=== PATIENT | female | born 1975 | race Two or more races ===

== ENCOUNTER 2021-11-17 18:19 | Inpatient (IN) | payer MEDICARE, MEDICAID ==
[~2021-11-17] VITALS: Ht 154.9 cm; Wt 56.1 kg
[2021-11-17] MEDS ORDERED: LURA40TA2 PO (19:22)
[2021-11-17] MEDS ORDERED: ESCI-8 PO (19:22)
[2021-11-17] MEDS ORDERED: OMEP40CA21 PO (19:27)
[2021-11-17] MEDS ORDERED: PANT40TA54 PO (19:51)
[2021-11-17] MEDS ORDERED: SPIR50TA27 PO (19:51)
[2021-11-17] MEDS ORDERED: CYCL10TA16 PO (19:51)
[2021-11-17] MEDS ORDERED: MORP30TA71 PO (19:51)
[2021-11-17] MEDS ORDERED: CITA-144 PO (19:51)
[2021-11-17] MEDS ORDERED: ETAN50PE2 SQ (19:51)
[2021-11-17] MEDS ORDERED: VARE1TAB28 PO (19:51)
[2021-11-17] MEDS ORDERED: LEVO5TAB13 PO (19:51)
[2021-11-17] MEDS ORDERED: BUSP10TA23 PO (19:51)
[2021-11-17] MEDS ORDERED: ZOLP10TA8 PO (19:51)
[2021-11-17] MEDS ORDERED: LEVO112T7 PO (19:51)
[2021-11-17] MEDS ORDERED: TRAZ-257 PO (19:51)
[2021-11-17 20:31] LABS: BASOPHILS % (AUTO) 0.5 % (0.0-2.0); EOSINOPHILS % (AUTO) 0.3 % (1.0-6.0); HEMATOCRIT 38.1 % (36-46); HEMOGLOBIN 13.1 g/dL (12.0-16.0); LYMPHOCYTES # (AUTO) 1.8 K/uL (1.0-4.8); LYMPHOCYTES % (AUTO) 20.1 % (22.0-44.0); MEAN CORPUSCULAR HEMOGLOBIN 28.6 pg (26.0-34.0); MEAN CORPUSCULAR HGB CONC 34.4 G/dL (31.0-37.0); MEAN CORPUSCULAR VOLUME 83 fL (80-100); MONOCYTES # (AUTO) 0.5 K/uL (0.1-1.0); NEUTROPHILS # (AUTO) 6.6 K/uL (1.8-7.7); NEUTROPHILS % (AUTO) 73.1 % (40.0-70.0); PLATELET COUNT (AUTO) 417 K/uL (150-450); RED BLOOD CELL COUNT(AUTO) 4.58 MIL/uL (4.00-5.20); RED CELL DISTRIBUTION WIDTH 15.3 % (11.5-14.5)
[2021-11-17 20:43] LABS: ANION GAP 11 mmol/L (8-16); CALCIUM, TOTAL 9.8 mg/dL (8.8-10.5); CARBON DIOXIDE 23 mmol/L (22-29); CHLORIDE 104 mmol/L (98-107); CREATININE 0.79 mg/dL (0.60-1.30); GLUCOSE,RANDOM 92 mg/dL (70-110); POTASSIUM 3.5 mmol/L (3.5-5.1); SODIUM SERUM 138 mmol/L (136-145); UREA NITROGEN, BLOOD 8 mg/dL (7-18)
[2021-11-17 20:44] LABS: GLOMERULAR FILTR. RATE CALC > 60 mL/min (>60)
[2021-11-17 20:48] LABS: ALANINE AMINOTRANSFERASE 25 U/L (12-78); ALBUMIN 4.8 g/dL (3.4-5.0); ALKALINE PHOSPHATASE 92 U/L (46-116); ASPARTATE AMINOTRANSFERASE 17 U/L (15-37); BILIRUBIN,TOTAL 0.6 mg/dL (0.1-1.0)
[2021-11-17 22:01] LABS: HCG,QUANTITATIVE < 1 mIU/mL (0-6)
[2021-11-18] MEDS ORDERED: HYDROCODONE/ACETAMINOPHEN 5-325 MG TABLET PO ONE (00:15)
[2021-11-18 01:37] LABS: AMPHET/METH SCREEN,URINE NEGATIVE (NEGATIVE); BARBITURATE SCREEN, URINE NEGATIVE (NEGATIVE); BENZODIAZEPINES SCREEN,URINE NEGATIVE (NEGATIVE); CANNABINOID SCREEN,URINE POSITIVE (NEGATIVE); COCAINE SCREEN,URINE NEGATIVE (NEGATIVE); METHADONE SCREEN, URINE NEGATIVE (NEGATIVE); OPIATE SCREEN,URINE NEGATIVE (NEGATIVE)
[2021-11-18 01:40] LABS: PHENCYCLIDINE SCREEN,URINE NEGATIVE (NEGATIVE)
[2021-11-18] MEDS ORDERED: OLANZapine 5 MG RAPDIS TABLET PO PRN (02:00)
[2021-11-18] MEDS ORDERED: ZOLPIDEM TARTRATE 10 MG TABLET PO PRN (02:00)
[2021-11-18 02:43] LABS: APPEARANCE,URINE CLEAR (CLEAR); BILIRUBIN,URINE NEGATIVE (NEGATIVE); GLUCOSE, URINE (UA) NEGATIVE (NEGATIVE); KETONES,URINE 80-100 mg/dL (NEGATIVE); LEUKOCYTE ESTERASE ,URINE NEGATIVE (NEGATIVE); NITRATE,URINE NEGATIVE (NEGATIVE); OCCULT BLOOD,URINE NEGATIVE (NEGATIVE); PH,URINE 6.5 (5.0-8.0); PROTEIN,URINE 30-70 mg/dL (NEGATIVE); SPECIFIC GRAVITIY, URINE 1.025 (1.003-1.030)
[2021-11-18 06:14] LABS: COVID AG,FIA SOURCE NASAL SWAB
[2021-11-18] MEDS ORDERED: ACETAMINOPHEN 325 MG TABLET PO PRN (10:30)
[2021-11-18] MEDS ORDERED: LOPERAMIDE HCL 2 MG CAPSULE PO PRN (10:30)
[2021-11-18] MEDS ORDERED: PROMETHAZINE HCL 25 MG TABLET PO PRN (10:30)
[2021-11-18] MEDS ORDERED: HydrOXYzine PAMOATE 50 MG CAPSULE PO PRN (10:30)
[2021-11-18] MEDS ORDERED: LURASIDONE HCL 20 MG TABLET PO PRN (10:30)
[2021-11-18] MEDS ORDERED: MAG HYDROX/AL HYDROX/SIMETH ES 30 ML SUSPENSION UDCUP PO PRN (10:30)
[2021-11-18] MEDS ORDERED: MAGNESIUM HYDROXIDE SUSPENSION 30 ML UDCUP PO PRN (10:30)
[2021-11-18] MEDS ORDERED: GuaiFENesin/D-METHORPHAN [SUGAR-FREE] 200-20MG/10 ML SYRUP UDCUP PO PRN (10:30)
[2021-11-18] MEDS ORDERED: TUBERCULIN, PURIFIED PROTEIN DERIVATIVE 5 TU/0.1 ML SYRINGE ID ONE (10:30)
[2021-11-18 10:46] VITALS: BP 131/82
[2021-11-18] MEDS: GABAPENTIN 300 MG CAPSULE PO SCH ×2 (12:30→16:20)
[2021-11-18] MEDS: SPIRONOLACTONE 50 MG TABLET PO SCH (12:30)
[2021-11-18] MEDS: OMEPRAZOLE 20 MG CAPSULE PO SCH (12:31)
[2021-11-18] MEDS: LORazepam 2 MG TABLET PO PRN (14:00)
[2021-11-18] MEDS: THIAMINE 100 MG TABLET PO SCH (16:20)
[2021-11-18 16:30] VITALS: BP 155/80
[2021-11-18] MEDS: LURASIDONE HCL 40 MG TABLET PO SCH (17:37)
[2021-11-18] MEDS: MELATONIN 5 MG TABLET PO SCH (21:00)
[2021-11-18] MEDS: TraZODone HCL 100 MG TABLET PO SCH (21:00)
[2021-11-19] MEDS: LORazepam 2 MG TABLET PO PRN ×3 (03:40→16:30)
[2021-11-19] MEDS: LEVOTHYROXINE SODIUM 112 MCG TABLET PO SCH (06:12)
[2021-11-19 07:43] LABS: HEMOGLOBIN A1C 4.9 % (3.8-5.6)
[2021-11-19 07:50] LABS: CHOL/HDL RATIO 1.8 (3.9-5.7); FREE T4 (FREE THYROXINE) 1.28 ng/dL (0.76-1.46); THYROID STIMULATING HORMONE 0.1 uIU/mL (0.36-3.74)
[2021-11-19 08:00] VITALS: BP 120/76
[2021-11-19] MEDS: OMEPRAZOLE 20 MG CAPSULE PO SCH (08:39)
[2021-11-19] MEDS: MULTIVITAMINS WITH MINERALS, THERAPEUTIC TABLET PO SCH (08:39)
[2021-11-19] MEDS: FOLIC ACID 1 MG TABLET PO SCH (08:39)
[2021-11-19] MEDS: GABAPENTIN 300 MG CAPSULE PO SCH ×2 (08:39→14:11)
[2021-11-19] MEDS: THIAMINE 100 MG TABLET PO SCH ×2 (08:39→17:04)
[2021-11-19] MEDS: NALTREXONE HCL 50 MG TABLET PO SCH (08:40)
[2021-11-19] MEDS: SPIRONOLACTONE 50 MG TABLET PO SCH (08:40)
[2021-11-19] MEDS: OMEGA-3/DHA/EPA/FISH OIL 1,000 MG CAPSULE PO SCH (08:40)
[2021-11-19] MEDS ORDERED: DULoxetine HCL 20 MG CAPSULE PO SCH (09:00)
[2021-11-19 16:38] VITALS: BP 130/82
[2021-11-19] MEDS: LURASIDONE HCL 40 MG TABLET PO SCH (17:04)
[2021-11-19] MEDS: GABAPENTIN 400 MG CAPSULE PO SCH (17:04)
[2021-11-19] MEDS: MELATONIN 5 MG TABLET PO SCH (20:33)
[2021-11-19] MEDS: TraZODone HCL 100 MG TABLET PO SCH (20:33)
[2021-11-20] MEDS: LORazepam 2 MG TABLET PO PRN ×2 (03:52→12:19)
[2021-11-20 03:53] VITALS: BP 110/74
[2021-11-20] MEDS: LEVOTHYROXINE SODIUM 112 MCG TABLET PO SCH (06:59)
[2021-11-20 08:00] VITALS: BP 112/76
[2021-11-20] MEDS ORDERED: DULoxetine HCL 30 MG CAPSULE PO SCH (09:00)
[2021-11-20] MEDS: GABAPENTIN 400 MG CAPSULE PO SCH ×2 (09:11→12:17)
[2021-11-20] MEDS: OMEPRAZOLE 20 MG CAPSULE PO SCH (09:12)
[2021-11-20] MEDS: MULTIVITAMINS WITH MINERALS, THERAPEUTIC TABLET PO SCH (09:12)
[2021-11-20] MEDS: OMEGA-3/DHA/EPA/FISH OIL 1,000 MG CAPSULE PO SCH (09:13)
[2021-11-20] MEDS: NALTREXONE HCL 50 MG TABLET PO SCH (09:13)
[2021-11-20] MEDS: THIAMINE 100 MG TABLET PO SCH ×2 (09:13→16:32)
[2021-11-20] MEDS: SPIRONOLACTONE 50 MG TABLET PO SCH (09:13)
[2021-11-20] MEDS: FOLIC ACID 1 MG TABLET PO SCH (09:14)
[2021-11-20] MEDS ORDERED: GABA-1201 PO (15:45)
[2021-11-20] MEDS ORDERED: LURA40TA2 PO (15:45)
[2021-11-20] MEDS ORDERED: NALT50TA PO (15:45)
[2021-11-20] MEDS ORDERED: DULO-114 PO (15:45)
[2021-11-20] MEDS ORDERED: MELA5TAB40 PO (15:45)
[2021-11-20] MEDS ORDERED: OMEG-108 PO (15:45)
[2021-11-20] MEDS ORDERED: TRAZ-257 PO (15:45)
[2021-11-20] MEDS: GABAPENTIN 300 MG CAPSULE PO SCH (16:32)
[2021-11-20 17:05] VITALS: BP 109/71
[2021-11-20] MEDS: LURASIDONE HCL 40 MG TABLET PO SCH (17:49)
[2021-11-20] MEDS: TraZODone HCL 100 MG TABLET PO SCH (20:22)
[2021-11-20] MEDS: MELATONIN 5 MG TABLET PO SCH (20:22)
[2021-11-21 02:35] VITALS: BP 139/73
[2021-11-21] MEDS: LORazepam 2 MG TABLET PO PRN ×2 (02:39→11:42)
[2021-11-21] MEDS ORDERED: OMEG-108 PO (04:49)
[2021-11-21] MEDS ORDERED: LEVOTHYROXINE SODIUM 100 MCG TABLET PO SCH (07:00)
[2021-11-21] MEDS: GABAPENTIN 300 MG CAPSULE PO SCH ×2 (08:36→13:11)
[2021-11-21] MEDS: OMEPRAZOLE 20 MG CAPSULE PO SCH (08:36)
[2021-11-21] MEDS: OMEGA-3/DHA/EPA/FISH OIL 1,000 MG CAPSULE PO SCH (08:36)
[2021-11-21] MEDS: NALTREXONE HCL 50 MG TABLET PO SCH (08:36)
[2021-11-21] MEDS: MULTIVITAMINS WITH MINERALS, THERAPEUTIC TABLET PO SCH (08:36)
[2021-11-21] MEDS: FOLIC ACID 1 MG TABLET PO SCH (08:36)
[2021-11-21] MEDS: THIAMINE 100 MG TABLET PO SCH (08:37)
[2021-11-21] MEDS: SPIRONOLACTONE 50 MG TABLET PO SCH (08:37)
[2021-11-21] MEDS ORDERED: DULoxetine HCL 20 MG CAPSULE PO SCH (09:00)
[2021-11-21] MEDS ORDERED: LEVO125T95 PO (10:10)
[2021-11-21 10:11] VITALS: BP 114/75
[2021-11-21 10:23] VITALS: BP 114/75
[2021-11-21] MEDS ORDERED: LEVO100 PO (12:01)
[2021-11-21] MEDS ORDERED: OMEP20 PO (12:01)
[2021-11-21] MEDS ORDERED: SPIR50TA5 PO (12:01)
== END 2021-11-21 15:05 | disposition home or self-care (01) | DRG 885 ==
LOC: EMS 19:06 → UNDOADMIN 11-18 06:26 → B2X 11-18 06:26 → 3EX 11-18 10:00
PROVIDERS: ADMIT Psychiatry & Neurology Psychiatry; ATTEND Psychiatry & Neurology Psychiatry
DX: F31.30 Bipolar disorder, current episode depressed, mild or moderate severity, unspecified (principal); R45.851 Suicidal ideations; F25.9 Schizoaffective disorder, unspecified; E03.9 Hypothyroidism, unspecified; F17.210 Nicotine dependence, cigarettes, uncomplicated; F41.9 Anxiety disorder, unspecified; K21.9 Gastro-esophageal reflux disease without esophagitis; M06.9 Rheumatoid arthritis, unspecified; Z20.822 Contact with and (suspected) exposure to COVID-19; M79.7 Fibromyalgia; Z91.19 Patient's noncompliance with other medical treatment and regimen
CPT/HCPCS: 80053; 80061; 81003; 83036; 84439; 84443; 84702; 85025; 86592; 99285; G0378; G0480; Q9967

== ENCOUNTER 2022-02-13 13:57 | Inpatient (IN) | payer MEDICARE, MEDICAID ==
[~2022-02-13] VITALS: Ht 154.9 cm; Wt 60.5 kg
[~2022-02-13 13:57] MED LIST: DULO-114 PO; GABA-1201 PO; LEVO100 PO; LEVO125T95 PO; LURA40TA2 PO; MELA5TAB40 PO; NALT50TA PO; OMEG-135 PO; OMEP20 PO; OMEP40CA21 PO; SPIR50TA27 PO; SPIR50TA5 PO; TRAZ-257 PO
[2022-02-13 14:57] LABS: BASOPHILS % (AUTO) 1.1 % (0.0-2.0); EOSINOPHILS % (AUTO) 0.6 % (1.0-6.0); HEMATOCRIT 38.5 % (36-46); HEMOGLOBIN 12.7 g/dL (12.0-16.0); LYMPHOCYTES # (AUTO) 1.8 K/uL (1.0-4.8); LYMPHOCYTES % (AUTO) 20.4 % (22.0-44.0); MEAN CORPUSCULAR HEMOGLOBIN 28.6 pg (26.0-34.0); MEAN CORPUSCULAR VOLUME 87 fL (80-100); MONOCYTES # (AUTO) 0.6 K/uL (0.1-1.0); MONOCYTES % (AUTO) 7.1 % (2.0-9.0); NEUTROPHILS # (AUTO) 6.2 K/uL (1.8-7.7); NEUTROPHILS % (AUTO) 70.8 % (40.0-70.0); PLATELET COUNT (AUTO) 306 K/uL (150-450); RED BLOOD CELL COUNT(AUTO) 4.45 MIL/uL (4.00-5.20); RED CELL DISTRIBUTION WIDTH 15.3 % (11.5-14.5)
[2022-02-13 15:14] LABS: ANION GAP 7 mmol/L (8-16); CALCIUM, TOTAL 9.4 mg/dL (8.8-10.5); CARBON DIOXIDE 30 mmol/L (22-29); CHLORIDE 99 mmol/L (98-107); CREATININE 0.95 mg/dL (0.60-1.30); GLOMERULAR FILTR. RATE CALC > 60 mL/min (>60); GLUCOSE,RANDOM 97 mg/dL (70-110); SODIUM SERUM 136 mmol/L (136-145); UREA NITROGEN, BLOOD 8 mg/dL (7-18)
[2022-02-13 15:20] LABS: ALANINE AMINOTRANSFERASE 30 U/L (12-78); ALKALINE PHOSPHATASE 68 U/L (46-116); ASPARTATE AMINOTRANSFERASE 27 U/L (15-37); BILIRUBIN,TOTAL 0.3 mg/dL (0.1-1.0); TOTAL PROTEIN, SERUM 7.6 g/dL (6.4-8.2)
[2022-02-13] MEDS ORDERED: MAGNESIUM HYDROXIDE SUSPENSION 30 ML UDCUP PO PRN (16:00)
[2022-02-13] MEDS ORDERED: HydrOXYzine PAMOATE 50 MG CAPSULE PO PRN (16:00)
[2022-02-13] MEDS ORDERED: ZOLPIDEM TARTRATE 10 MG TABLET PO PRN (16:00)
[2022-02-13] MEDS ORDERED: MAG HYDROX/AL HYDROX/SIMETH ES 30 ML SUSPENSION UDCUP PO PRN (16:00)
[2022-02-13] MEDS ORDERED: LOPERAMIDE HCL 2 MG CAPSULE PO PRN (16:00)
[2022-02-13] MEDS ORDERED: PROMETHAZINE HCL 25 MG TABLET PO PRN (16:00)
[2022-02-13] MEDS ORDERED: GuaiFENesin/D-METHORPHAN [SUGAR-FREE] 200-20MG/10 ML SYRUP UDCUP PO PRN (16:00)
[2022-02-13] MEDS ORDERED: LURASIDONE HCL 20 MG TABLET PO PRN (16:00)
[2022-02-13] MEDS ORDERED: ACETAMINOPHEN 325 MG TABLET PO PRN (16:00)
[2022-02-13] MEDS ORDERED: BUSP10TA23 PO (16:09)
[2022-02-13] MEDS ORDERED: CYCL10TA16 PO (16:09)
[2022-02-13] MEDS ORDERED: MORP30TA71 PO (16:09)
[2022-02-13] MEDS ORDERED: LEVO112T4 PO (16:09)
[2022-02-13] MEDS ORDERED: DULO20CA71 PO (16:09)
[2022-02-13] MEDS ORDERED: GABA-1181 PO (16:09)
[2022-02-13] MEDS ORDERED: LEVO5TAB13 PO (16:09)
[2022-02-13] MEDS ORDERED: ZOLP10TA8 PO (16:09)
[2022-02-13] MEDS ORDERED: CITA-144 PO (16:09)
[2022-02-13] MEDS ORDERED: ETAN50PE2 SQ (16:09)
[2022-02-13] MEDS ORDERED: DiphenhydrAMINE HCL 25 MG CAPSULE PO ONE (17:15)
[2022-02-13] MEDS ORDERED: LORazepam 2 MG TABLET PO ONE (17:15)
[2022-02-13] MEDS ORDERED: HALOPERIDOL 5 MG TABLET PO ONE (17:15)
[2022-02-13] MEDS ORDERED: CloNIDine HCL 0.1 MG TABLET PO PRN (18:00)
[2022-02-13] MEDS: BusPIRone HCL 10 MG TABLET PO SCH (18:09)
[2022-02-13] MEDS: LURASIDONE HCL 60 MG TABLET PO SCH (18:15)
[2022-02-13 20:44] LABS: COVID AG,FIA SOURCE NASAL SWAB
[2022-02-13] MEDS: MELATONIN 5 MG TABLET PO SCH (21:00)
[2022-02-13] MEDS ORDERED: GABAPENTIN 300 MG CAPSULE PO SCH (21:00)
[2022-02-13] MEDS: THIAMINE 100 MG TABLET PO SCH (21:16)
[2022-02-13] MEDS: GABAPENTIN 300 MG CAPSULE PO SCH (21:16)
[2022-02-13] MEDS ORDERED: INFLUENZA VIRUS VACCINE QVS 2022-23 (6MO+)/PF 60 MCG/0.5 ML SYRINGE IM. ONE (23:00)
[2022-02-13 23:07] VITALS: BP 150/72
[2022-02-14] MEDS ORDERED: NICOTINE 14 MG/24 HOUR PATCH TD PRN (03:30)
[2022-02-14] MEDS: LEVOTHYROXINE SODIUM 88 MCG TABLET PO SCH (06:11)
[2022-02-14] MEDS: OMEGA-3/DHA/EPA/FISH OIL 1,000 MG CAPSULE PO SCH (08:41)
[2022-02-14] MEDS: MULTIVITAMINS WITH MINERALS, THERAPEUTIC TABLET PO SCH (08:41)
[2022-02-14] MEDS: SPIRONOLACTONE 50 MG TABLET PO SCH (08:41)
[2022-02-14] MEDS: OMEPRAZOLE 20 MG CAPSULE PO SCH (08:41)
[2022-02-14] MEDS: DULoxetine HCL 60 MG CAPSULE PO SCH (08:41)
[2022-02-14] MEDS: GABAPENTIN 300 MG CAPSULE PO SCH ×3 (08:41→16:12)
[2022-02-14] MEDS: FOLIC ACID 1 MG TABLET PO SCH (08:42)
[2022-02-14] MEDS: THIAMINE 100 MG TABLET PO SCH ×2 (08:42→16:13)
[2022-02-14 08:58] VITALS: BP 153/90
[2022-02-14] MEDS ORDERED: [UNRECOGNIZED DRUG - OTHER] PO SCH (09:00)
[2022-02-14] MEDS: BusPIRone HCL 10 MG TABLET PO SCH ×2 (11:02→16:13)
[2022-02-14 16:02] VITALS: BP 137/85
[2022-02-14] MEDS: LURASIDONE HCL 60 MG TABLET PO SCH (16:34)
[2022-02-14] MEDS: MELATONIN 5 MG TABLET PO SCH (20:26)
[2022-02-15] MEDS: LEVOTHYROXINE SODIUM 88 MCG TABLET PO SCH (06:53)
[2022-02-15] MEDS: SPIRONOLACTONE 50 MG TABLET PO SCH (08:25)
[2022-02-15] MEDS: OMEGA-3/DHA/EPA/FISH OIL 1,000 MG CAPSULE PO SCH (08:25)
[2022-02-15] MEDS: FOLIC ACID 1 MG TABLET PO SCH (08:25)
[2022-02-15] MEDS: OMEPRAZOLE 20 MG CAPSULE PO SCH (08:25)
[2022-02-15] MEDS: THIAMINE 100 MG TABLET PO SCH ×2 (08:25→16:56)
[2022-02-15] MEDS: BusPIRone HCL 10 MG TABLET PO SCH ×2 (08:25→16:56)
[2022-02-15] MEDS: DULoxetine HCL 60 MG CAPSULE PO SCH (08:25)
[2022-02-15] MEDS: GABAPENTIN 300 MG CAPSULE PO SCH ×3 (08:25→16:56)
[2022-02-15] MEDS: MULTIVITAMINS WITH MINERALS, THERAPEUTIC TABLET PO SCH (08:55)
[2022-02-15 09:15] VITALS: BP 140/84
[2022-02-15] MEDS: LORazepam 2 MG TABLET PO PRN ×2 (10:12→19:42)
[2022-02-15 16:30] VITALS: BP 115/76
[2022-02-15] MEDS: LURASIDONE HCL 60 MG TABLET PO SCH (16:56)
[2022-02-15] MEDS: MELATONIN 5 MG TABLET PO SCH (20:54)
[2022-02-16] MEDS: LEVOTHYROXINE SODIUM 88 MCG TABLET PO SCH (06:16)
[2022-02-16] MEDS: MULTIVITAMINS WITH MINERALS, THERAPEUTIC TABLET PO SCH (08:51)
[2022-02-16] MEDS: GABAPENTIN 300 MG CAPSULE PO SCH ×3 (08:51→16:12)
[2022-02-16] MEDS: OMEPRAZOLE 20 MG CAPSULE PO SCH (08:51)
[2022-02-16] MEDS: OMEGA-3/DHA/EPA/FISH OIL 1,000 MG CAPSULE PO SCH (08:52)
[2022-02-16] MEDS: THIAMINE 100 MG TABLET PO SCH ×2 (08:52→16:11)
[2022-02-16] MEDS: DULoxetine HCL 60 MG CAPSULE PO SCH (08:52)
[2022-02-16] MEDS: AmLODIPine BESYLATE 2.5 MG TABLET PO SCH (08:52)
[2022-02-16] MEDS: BusPIRone HCL 10 MG TABLET PO SCH ×2 (08:53→16:11)
[2022-02-16] MEDS: SPIRONOLACTONE 50 MG TABLET PO SCH (08:54)
[2022-02-16] MEDS: FOLIC ACID 1 MG TABLET PO SCH (08:54)
[2022-02-16] MEDS: LORazepam 2 MG TABLET PO PRN ×3 (08:58→20:09)
[2022-02-16 09:00] VITALS: BP 144/94
[2022-02-16 14:41] VITALS: BP 128/80
[2022-02-16 16:01] VITALS: BP 127/77
[2022-02-16] MEDS: LURASIDONE HCL 60 MG TABLET PO SCH (16:11)
[2022-02-16] MEDS ORDERED: GABA-1181 PO (17:37)
[2022-02-16] MEDS ORDERED: OMEG-135 PO (17:37)
[2022-02-16] MEDS ORDERED: DULO-113 PO (17:37)
[2022-02-16] MEDS ORDERED: BUSP10TA23 PO (17:37)
[2022-02-16] MEDS ORDERED: MELA5TAB40 PO (17:37)
[2022-02-16] MEDS ORDERED: LURA60TA PO (17:37)
[2022-02-16] MEDS: MELATONIN 5 MG TABLET PO SCH (20:12)
[2022-02-17] MEDS: LEVOTHYROXINE SODIUM 88 MCG TABLET PO SCH (06:19)
[2022-02-17 06:22] VITALS: BP 140/95
[2022-02-17 08:00] VITALS: BP 161/80
[2022-02-17] MEDS: MULTIVITAMINS WITH MINERALS, THERAPEUTIC TABLET PO SCH (08:07)
[2022-02-17] MEDS: THIAMINE 100 MG TABLET PO SCH (08:08)
[2022-02-17] MEDS: GABAPENTIN 300 MG CAPSULE PO SCH ×2 (08:08→12:15)
[2022-02-17] MEDS: OMEPRAZOLE 20 MG CAPSULE PO SCH (08:08)
[2022-02-17] MEDS: DULoxetine HCL 60 MG CAPSULE PO SCH (08:09)
[2022-02-17] MEDS: OMEGA-3/DHA/EPA/FISH OIL 1,000 MG CAPSULE PO SCH (08:09)
[2022-02-17] MEDS: FOLIC ACID 1 MG TABLET PO SCH (08:10)
[2022-02-17] MEDS: SPIRONOLACTONE 50 MG TABLET PO SCH (08:10)
[2022-02-17] MEDS: BusPIRone HCL 10 MG TABLET PO SCH (08:10)
[2022-02-17] MEDS: AmLODIPine BESYLATE 2.5 MG TABLET PO SCH (08:11)
[2022-02-17] MEDS: LORazepam 2 MG TABLET PO PRN (08:15)
[2022-02-17] MEDS ORDERED: SPIR-37 PO (21:25)
[2022-02-17] MEDS ORDERED: AMLO5TAB66 PO (21:25)
[2022-02-17] MEDS ORDERED: LEVO88TA4 PO (21:25)
[2022-02-17] MEDS ORDERED: OMEP20 PO (21:25)
== END 2022-02-17 14:45 | disposition home or self-care (01) | DRG 885 ==
LOC: EMS 14:00 → 3EX 16:51 → UNDOADMIN 16:51
PROVIDERS: ADMIT Psychiatry & Neurology Psychiatry; ATTEND Psychiatry & Neurology Psychiatry
DX: F25.1 Schizoaffective disorder, depressive type (principal); R45.851 Suicidal ideations; Z20.822 Contact with and (suspected) exposure to COVID-19; E03.9 Hypothyroidism, unspecified; F41.9 Anxiety disorder, unspecified; I10 Essential (primary) hypertension; M06.9 Rheumatoid arthritis, unspecified; M79.7 Fibromyalgia; Z55.9 Problems related to education and literacy, unspecified; Z59.9 Problem related to housing and economic circumstances, unspecified; Z63.9 Problem related to primary support group, unspecified; Z65.3 Problems related to other legal circumstances; Z74.01 Bed confinement status; Z87.891 Personal history of nicotine dependence
CPT/HCPCS: 80053; 84703; 85025; 87081; 99285; G0378; G0480; Q9967

== ENCOUNTER 2022-03-14 17:28 | Emergency (ER) | payer MEDICARE, OTHER ==
[~2022-03-14] VITALS: Ht 160 cm; Wt 61.4 kg
[2022-03-14 17:28] VITALS: BP 125/75
[~2022-03-14 17:28] MED LIST changes: +AMLO5TAB66 PO; +BUSP10TA23 PO; +CITA-144 PO; +CYCL10TA16 PO; +DULO-113 PO; -DULO-114 PO; +DULO20CA71 PO; +ETAN50PE2 SQ; +GABA-1181 PO; -GABA-1201 PO; -LEVO100 PO; +LEVO112T4 PO; -LEVO125T95 PO; +LEVO5TAB13 PO; +LEVO88TA4 PO; +LURA60TA PO; +MORP30TA71 PO; +SPIR-37 PO; -SPIR50TA27 PO; +ZOLP10TA8 PO
[2022-03-14] MEDS ORDERED: CYCL10TA16 PO (17:57)
[2022-03-14] MEDS ORDERED: DULO20CA71 PO (17:57)
[2022-03-14] MEDS ORDERED: SPIR-37 PO (17:57)
[2022-03-14] MEDS ORDERED: PANT40TA54 PO (17:57)
[2022-03-14] MEDS ORDERED: CITA-144 PO (17:57)
[2022-03-14] MEDS ORDERED: MORPHINE SULFATE 4 MG/ML SYRINGE IM ONE (18:00)
[2022-03-15] MEDS ORDERED: LURA40TA2 PO (13:23)
== END 2022-03-14 18:17 | disposition home or self-care (01) ==
LOC: EMS 17:32
DX: M25.542 Pain in joints of left hand (principal); M25.541 Pain in joints of right hand; M25.562 Pain in left knee; M25.561 Pain in right knee; M26.629 Arthralgia of temporomandibular joint, unspecified side; F31.9 Bipolar disorder, unspecified; F17.210 Nicotine dependence, cigarettes, uncomplicated; M06.9 Rheumatoid arthritis, unspecified; M79.7 Fibromyalgia
CPT/HCPCS: 99283; 96372; J2270

== ENCOUNTER 2022-03-15 13:10 | Emergency (ER) | payer MEDICARE, OTHER ==
[~2022-03-15] VITALS: Ht 154.9 cm; Wt 61.4 kg
[~2022-03-15 13:10] MED LIST changes: -DULO-113 PO; -LEVO88TA4 PO; -LURA40TA2 PO; -LURA60TA PO; -NALT50TA PO; -OMEP20 PO; -OMEP40CA21 PO; +PANT40TA54 PO; -SPIR50TA5 PO; -TRAZ-257 PO
[2022-03-15] MEDS ORDERED: LURA40TA2 PO (13:23)
[2022-03-15] MEDS ORDERED: MORPHINE SULFATE 4 MG/ML SYRINGE IM ONE (15:30)
[2022-03-15 15:35] VITALS: BP 134/86
== END 2022-03-15 16:11 | disposition home or self-care (01) ==
LOC: EMS 13:13
DX: M19.09 Primary osteoarthritis, other specified site (principal); F31.9 Bipolar disorder, unspecified; F17.210 Nicotine dependence, cigarettes, uncomplicated; M79.7 Fibromyalgia
CPT/HCPCS: 99283; 96372; J2270

== ENCOUNTER 2022-06-03 16:05 | Emergency (ER) | payer MEDICARE, OTHER ==
[~2022-06-03] VITALS: Ht 154.9 cm; Wt 59.5 kg
[~2022-06-03 16:05] MED LIST changes: +LURA40TA2 PO
[2022-06-03] MEDS ORDERED: DULO-113 PO (16:18)
[2022-06-03 17:52] VITALS: BP 146/90
[2022-06-03] MEDS ORDERED: FLUT16SP NASAL (19:22)
[2022-06-03] MEDS ORDERED: AMOX250C4 PO (19:22)
== END 2022-06-03 19:35 | disposition home or self-care (01) ==
LOC: EMS 16:19
DX: H83.8X2 Other specified diseases of left inner ear (principal); M19.90 Unspecified osteoarthritis, unspecified site; F31.9 Bipolar disorder, unspecified; F17.210 Nicotine dependence, cigarettes, uncomplicated; M79.7 Fibromyalgia
CPT/HCPCS: 99283; Z7502

== ENCOUNTER 2022-06-11 14:54 | Emergency (ER) | payer MEDICARE, OTHER ==
[~2022-06-11] VITALS: Ht 154.9 cm; Wt 59.1 kg
[~2022-06-11 14:54] MED LIST changes: -AMLO5TAB66 PO; +AMOX250C4 PO; -CITA-144 PO; +DULO-113 PO; -DULO20CA71 PO; +FLUT16SP NASAL; -MELA5TAB40 PO; -OMEG-135 PO
[2022-06-11] MEDS ORDERED: SODIUM CHLORIDE 0.9% 1,000 ML IV ONE ×3 (17:30→20:15)
[2022-06-11] MEDS ORDERED: ONDANSETRON HCL 4 MG/2 ML VIAL IVP ONE (17:30)
[2022-06-11] MEDS ORDERED: MORPHINE SULFATE 2 MG/ML SYRINGE IVP ONE ×2 (17:30→21:15)
[2022-06-11 17:47] LABS: BASOPHILS % (AUTO) 0.9 % (0.0-2.0); EOSINOPHILS % (AUTO) 0.2 % (1.0-6.0); HEMATOCRIT 42.7 % (36-46); LYMPHOCYTES % (AUTO) 8.3 % (22.0-44.0); MEAN CORPUSCULAR HEMOGLOBIN 27.5 pg (26.0-34.0); MEAN CORPUSCULAR HGB CONC 32.7 G/dL (31.0-37.0); MEAN CORPUSCULAR VOLUME 84 fL (80-100); MONOCYTES # (AUTO) 0.3 K/uL (0.1-1.0); MONOCYTES % (AUTO) 2.7 % (2.0-9.0); PLATELET COUNT (AUTO) 560 K/uL (150-450); RED BLOOD CELL COUNT(AUTO) 5.09 MIL/uL (4.00-5.20); RED CELL DISTRIBUTION WIDTH 14.3 % (11.5-14.5)
[2022-06-11 17:48] LABS: NEUTROPHILS % (AUTO) 87.9 % (40.0-70.0)
[2022-06-11 18:00] LABS: ANION GAP 10 mmol/L (8-16); CARBON DIOXIDE 25 mmol/L (22-29); CHLORIDE 101 mmol/L (98-107); CREATININE 0.65 mg/dL (0.60-1.30); GLOMERULAR FILTR. RATE CALC > 60 mL/min (>60); GLUCOSE,RANDOM 113 mg/dL (70-110); POTASSIUM 4.4 mmol/L (3.5-5.1); SODIUM SERUM 136 mmol/L (136-145); UREA NITROGEN, BLOOD 16 mg/dL (7-18)
[2022-06-11 18:12] LABS: ALANINE AMINOTRANSFERASE 29 U/L (12-78); ALBUMIN 3.6 g/dL (3.4-5.0); ALKALINE PHOSPHATASE 105 U/L (46-116); ASPARTATE AMINOTRANSFERASE 23 U/L (15-37); BILIRUBIN,TOTAL 0.2 mg/dL (0.1-1.0); HCG,QUANTITATIVE < 1 mIU/mL (0-6); LIPASE 131 U/L (73-393)
[2022-06-11] MEDS ORDERED: LOPE-232 PO (21:07)
[2022-06-11] MEDS ORDERED: ONDA-104 PO (21:07)
[2022-06-11 22:07] VITALS: BP 126/89
== END 2022-06-11 22:18 | disposition home or self-care (01) ==
LOC: EMS 14:56
DX: R10.84 Generalized abdominal pain (principal); F11.23 Opioid dependence with withdrawal; R11.10 Vomiting, unspecified; R19.7 Diarrhea, unspecified; M79.7 Fibromyalgia; F17.210 Nicotine dependence, cigarettes, uncomplicated; F31.9 Bipolar disorder, unspecified; Z90.49 Acquired absence of other specified parts of digestive tract
CPT/HCPCS: 99285; 74176; 96374; 96361; 96375; 80053; 83690; 84702; 85025; 36415; 96376; J2270; J2405

== ENCOUNTER 2023-02-14 14:09 | Emergency (ER) | payer MEDICARE, OTHER ==
[~2023-02-14 14:09] MED LIST changes: +LOPE-232 PO; +ONDA-104 PO; +ZOLP-162 PO; -ZOLP10TA8 PO
[2023-02-14 14:44] LABS: BASOPHILS % (AUTO) 1.8 % (0.0-2.0); EOSINOPHILS % (AUTO) 0.9 % (1.0-6.0); HEMATOCRIT 37.4 % (36-46); HEMOGLOBIN 12.5 g/dL (12.0-16.0); LYMPHOCYTES # (AUTO) 2.3 K/uL (1.0-4.8); LYMPHOCYTES % (AUTO) 27.8 % (22.0-44.0); MEAN CORPUSCULAR HEMOGLOBIN 29.4 pg (26.0-34.0); MEAN CORPUSCULAR HGB CONC 33.4 G/dL (31.0-37.0); MEAN CORPUSCULAR VOLUME 88 fL (80-100); MONOCYTES # (AUTO) 0.5 K/uL (0.1-1.0); MONOCYTES % (AUTO) 6.3 % (2.0-9.0); NEUTROPHILS # (AUTO) 5.1 K/uL (1.8-7.7); NEUTROPHILS % (AUTO) 63.2 % (40.0-70.0); PLATELET COUNT (AUTO) 404 K/uL (150-450); RED BLOOD CELL COUNT(AUTO) 4.24 MIL/uL (4.00-5.20); RED CELL DISTRIBUTION WIDTH 14.3 % (11.5-14.5); WHITE BLOOD COUNT (AUTO) 8.1 K/uL (4.5-11.0)
[2023-02-14 14:53] LABS: ANION GAP 10 mmol/L (8-16); CALCIUM, TOTAL 8.6 mg/dL (8.8-10.5); CARBON DIOXIDE 25 mmol/L (22-29); CHLORIDE 103 mmol/L (98-107); GLOMERULAR FILTR. RATE CALC > 60 mL/min (>60); GLUCOSE,RANDOM 97 mg/dL (70-110); POTASSIUM 3.3 mmol/L (3.5-5.1); SODIUM SERUM 138 mmol/L (136-145); UREA NITROGEN, BLOOD 8 mg/dL (7-18)
[2023-02-14 14:58] LABS: ALANINE AMINOTRANSFERASE 22 U/L (12-78); ALBUMIN 4.1 g/dL (3.4-5.0); ALKALINE PHOSPHATASE 75 U/L (46-116); ASPARTATE AMINOTRANSFERASE 21 U/L (15-37); BILIRUBIN,TOTAL 0.5 mg/dL (0.1-1.0); TOTAL PROTEIN, SERUM 7.1 g/dL (6.4-8.2)
[2023-02-14 15:01] LABS: TROPONIN I-HIGH SENSITIVITY Less Than 4 ng/L (<51)
[2023-02-14] MEDS ORDERED: FAMOTIDINE 20 MG/2 ML VIAL IVP ONE (15:30)
[2023-02-14 15:53] LABS: TROPONIN I-HIGH SENSITIVITY Less Than 4 ng/L (<51)
[2023-02-14 16:08] LABS: CREATINE KINASE, TOTAL ONLY 94 U/L (26-192); LIPASE 59 U/L (16-77)
[2023-02-14 16:48] LABS: APPEARANCE,URINE CLEAR (CLEAR); BILIRUBIN,URINE NEGATIVE (NEGATIVE); COLOR,URINE LIGHT YELLOW (YELLOW); GLUCOSE, URINE (UA) NEGATIVE (NEGATIVE); KETONES,URINE NEGATIVE (NEGATIVE); LEUKOCYTE ESTERASE ,URINE NEGATIVE (NEGATIVE); NITRATE,URINE NEGATIVE (NEGATIVE); OCCULT BLOOD,URINE NEGATIVE (NEGATIVE); PROTEIN,URINE NEGATIVE (NEGATIVE); SPECIFIC GRAVITIY, URINE 1.008 (1.003-1.030); UROBILINOGEN,URINE <=1.0 mg/dL (<=1.0)
[2023-02-14 18:30] VITALS: BP 135/87; PULSE 84; RESP 16
[2023-02-14] MEDS ORDERED: BUSP10TA23 PO (18:42)
[2023-02-14] MEDS ORDERED: FAMO40TA7 PO (18:42)
[2023-02-14] MEDS ORDERED: KETOROLAC TROMETHAMINE 30 MG/ML VIAL IVP ONE (18:45)
== END 2023-02-14 19:08 | disposition home or self-care (01) ==
LOC: EMS 14:14
DX: K29.70 Gastritis, unspecified, without bleeding (principal); R07.9 Chest pain, unspecified; F31.9 Bipolar disorder, unspecified; M79.7 Fibromyalgia; F17.210 Nicotine dependence, cigarettes, uncomplicated; Z90.49 Acquired absence of other specified parts of digestive tract
CPT/HCPCS: 99285; 96374; 76705; 71045; 96375; 80053; 81003; 82550; 83690; 83880; 84484; 85025; 36415; 93005; J3490; J1885

== ENCOUNTER 2023-05-22 15:35 | Emergency (ER) | payer MEDICARE, OTHER ==
[~2023-05-22] VITALS: Ht 154.9 cm; Wt 56.8 kg
[~2023-05-22 15:35] MED LIST changes: -AMOX250C4 PO; +FAMO40TA7 PO; -PANT40TA54 PO
[2023-05-22 15:48] VITALS: TEMP 98.2
[2023-05-22] MEDS ORDERED: MORP30TA11 PO (19:29)
[2023-05-22] MEDS ORDERED: PREG300C20 PO (19:29)
[2023-05-22] MEDS ORDERED: KETOROLAC TROMETHAMINE 30 MG/ML VIAL IM ONE (19:30)
[2023-05-22] MEDS ORDERED: PredniSONE 20 MG TABLET PO ONE (19:30)
[2023-05-22] MEDS ORDERED: LOPE-232 PO (19:32)
[2023-05-22] MEDS ORDERED: PRED-554 PO (21:04)
[2023-05-22 21:13] VITALS: BP 148/80; PULSE 80; RESP 16
== END 2023-05-22 21:14 | disposition home or self-care (01) ==
LOC: EMS 15:53
DX: M79.18 Myalgia, other site (principal); M19.90 Unspecified osteoarthritis, unspecified site; F41.9 Anxiety disorder, unspecified; F31.9 Bipolar disorder, unspecified; I10 Essential (primary) hypertension; E03.9 Hypothyroidism, unspecified; F20.9 Schizophrenia, unspecified; F17.210 Nicotine dependence, cigarettes, uncomplicated; Z90.49 Acquired absence of other specified parts of digestive tract; Z98.51 Tubal ligation status
CPT/HCPCS: 99283; 96372; J1885; J7512

== ENCOUNTER 2023-05-23 15:29 | Emergency (ER) | payer MEDICARE, OTHER ==
[~2023-05-23] VITALS: Ht 152.4 cm; Wt 59.1 kg
[~2023-05-23 15:29] MED LIST changes: +MORP30TA11 PO; +PRED-554 PO; +PREG300C20 PO
[2023-05-23 17:14] VITALS: BP 153/84; PULSE 87; RESP 18; TEMP 98.1
[2023-05-23] MEDS ORDERED: HYDROCODONE/ACETAMINOPHEN 5-325 MG TABLET PO ONE (20:15)
== END 2023-05-23 21:04 | disposition left against medical advice (07) ==
LOC: EMS 15:30
DX: M25.519 Pain in unspecified shoulder (principal); Z53.21 Procedure and treatment not carried out due to patient leaving prior to being seen by health care provider
CPT/HCPCS: 99281; Z7502

== ENCOUNTER 2023-05-27 21:50 | Emergency (ER) | payer MEDICARE, OTHER ==
[~2023-05-27] VITALS: Ht 165.1 cm; Wt 77.3 kg
[~2023-05-27 21:50] MED LIST changes: -MORP30TA71 PO; -PRED-554 PO
[2023-05-27 22:17] VITALS: TEMP 99.1
[2023-05-27] MEDS ORDERED: LURA40TA2 PO (23:24)
[2023-05-27] MEDS ORDERED: PREG300C20 PO (23:24)
[2023-05-27] MEDS ORDERED: CYCL-448 PO (23:24)
[2023-05-27] MEDS ORDERED: CYCLOBENZAPRINE HCL 10 MG TABLET PO ONE (23:30)
[2023-05-27] MEDS ORDERED: BusPIRone HCL 10 MG TABLET PO ONE (23:30)
[2023-05-27] MEDS ORDERED: LURASIDONE HCL 40 MG TABLET PO ONE (23:30)
[2023-05-27 23:52] VITALS: BP 124/71; PULSE 71; RESP 17
== END 2023-05-27 23:54 | disposition home or self-care (01) ==
LOC: EMS 21:51
DX: F25.9 Schizoaffective disorder, unspecified (principal); M79.18 Myalgia, other site; F41.9 Anxiety disorder, unspecified; M19.90 Unspecified osteoarthritis, unspecified site; F32.A Depression, unspecified; I10 Essential (primary) hypertension; E03.9 Hypothyroidism, unspecified; F17.210 Nicotine dependence, cigarettes, uncomplicated; Z90.49 Acquired absence of other specified parts of digestive tract; Z98.51 Tubal ligation status
CPT/HCPCS: 99284; Z7502; Z7610

== ENCOUNTER 2023-08-13 09:41 | Emergency (ER) | payer MEDICARE, OTHER ==
[~2023-08-13] VITALS: Ht 154.9 cm; Wt 59.1 kg
[~2023-08-13 09:41] MED LIST changes: +CYCL-448 PO
[2023-08-13 09:44] VITALS: TEMP 98.1
[2023-08-13] MEDS: AMOXICILLIN TRIHYDRATE 250 MG CAPSULE PO ONE (11:32)
[2023-08-13] MEDS: IBUPROFEN 600 MG TABLET PO ONE (11:33)
[2023-08-13] MEDS ORDERED: CEPH-558 PO (13:01)
[2023-08-13 13:07] VITALS: BP 122/70; PULSE 90; RESP 16
== END 2023-08-13 13:07 | disposition home or self-care (01) ==
LOC: EMS 10:13
DX: H66.93 Otitis media, unspecified, bilateral (principal); F41.9 Anxiety disorder, unspecified; M19.90 Unspecified osteoarthritis, unspecified site; F31.9 Bipolar disorder, unspecified; I10 Essential (primary) hypertension; E03.9 Hypothyroidism, unspecified; F20.9 Schizophrenia, unspecified; Z87.891 Personal history of nicotine dependence; Z90.49 Acquired absence of other specified parts of digestive tract; Z98.51 Tubal ligation status
CPT/HCPCS: 99283

== ENCOUNTER → 2023-10-04 | Outpatient (CLI) | payer MEDICARE, MEDICAID ==
[~2023-10-04] MED LIST changes: +CEPH-558 PO
== END | disposition home or self-care (01) ==
LOC: RADPV 08:22
PROVIDERS: ATTEND Family Medicine
DX: K83.8 Other specified diseases of biliary tract (principal); R94.5 Abnormal results of liver function studies
CPT/HCPCS: 76705

== ENCOUNTER 2023-10-15 23:44 | Emergency (ER) | payer MEDICARE, MEDICAID ==
[~2023-10-15] VITALS: Ht 154.9 cm; Wt 56.8 kg
[2023-10-15 23:49] VITALS: TEMP 98.1
[2023-10-16 00:30] VITALS: BP 129/79; PULSE 101; RESP 16
== END 2023-10-16 04:24 | disposition home or self-care (01) ==
LOC: EMS 23:46
DX: M06.9 Rheumatoid arthritis, unspecified (principal); K21.9 Gastro-esophageal reflux disease without esophagitis; I10 Essential (primary) hypertension
CPT/HCPCS: 99281; Z7502

== ENCOUNTER → 2023-12-05 | Emergency (ER) | payer MEDICARE, OTHER ==
[~2023-12-05] VITALS: Ht 154.9 cm; Wt 59.1 kg
[2023-12-05 12:01] VITALS: TEMP 98.1
[2023-12-05 13:07] LABS: BASOPHILS % (AUTO) 1.3 % (0.0-2.0); EOSINOPHILS % (AUTO) 2.2 % (1.0-6.0); HEMATOCRIT 33.2 % (36-46); HEMOGLOBIN 10.9 g/dL (12.0-16.0); LYMPHOCYTES # (AUTO) 1.7 K/uL (1.0-4.8); LYMPHOCYTES % (AUTO) 19.3 % (22.0-44.0); MEAN CORPUSCULAR HEMOGLOBIN 29.2 pg (26.0-34.0); MEAN CORPUSCULAR HGB CONC 32.8 G/dL (31.0-37.0); MEAN CORPUSCULAR VOLUME 89 fL (80-100); MONOCYTES # (AUTO) 0.9 K/uL (0.1-1.0); MONOCYTES % (AUTO) 10.7 % (2.0-9.0); NEUTROPHILS # (AUTO) 5.8 K/uL (1.8-7.7); NEUTROPHILS % (AUTO) 66.5 % (40.0-70.0); PLATELET COUNT (AUTO) 255 K/uL (150-450); RED BLOOD CELL COUNT(AUTO) 3.74 MIL/uL (4.00-5.20); RED CELL DISTRIBUTION WIDTH 15.9 % (11.5-14.5); WHITE BLOOD COUNT (AUTO) 8.8 K/uL (4.5-11.0)
[2023-12-05 13:20] LABS: ANION GAP 7 mmol/L (8-16); CALCIUM, TOTAL 7.9 mg/dL (8.8-10.5); CARBON DIOXIDE 30 mmol/L (22-29); CHLORIDE 96 mmol/L (98-107); CREATININE 0.74 mg/dL (0.60-1.30); GLOMERULAR FILTR. RATE CALC > 60 mL/min (>60); GLUCOSE,RANDOM 96 mg/dL (70-110); POTASSIUM 3.7 mmol/L (3.5-5.1); SODIUM SERUM 133 mmol/L (136-145); UREA NITROGEN, BLOOD 6 mg/dL (7-18)
[2023-12-05 13:32] LABS: ALANINE AMINOTRANSFERASE 72 U/L (12-78); ALBUMIN 3.6 g/dL (3.4-5.0); ALKALINE PHOSPHATASE 108 U/L (46-116); ASPARTATE AMINOTRANSFERASE 138 U/L (15-37); BILIRUBIN,TOTAL 0.6 mg/dL (0.1-1.0); HCG,QUANTITATIVE < 1 mIU/mL (0-6); TOTAL PROTEIN, SERUM 6.8 g/dL (6.4-8.2)
[2023-12-05 14:38] VITALS: BP 146/67; PULSE 80; RESP 18
== END | disposition still patient (30) ==
LOC: EMS 11:50
DX: T65.891A Toxic effect of other specified substances, accidental (unintentional), initial encounter (principal); F41.9 Anxiety disorder, unspecified; M19.90 Unspecified osteoarthritis, unspecified site; F31.9 Bipolar disorder, unspecified; I10 Essential (primary) hypertension; E03.9 Hypothyroidism, unspecified; F20.9 Schizophrenia, unspecified; Z87.891 Personal history of nicotine dependence; Z90.49 Acquired absence of other specified parts of digestive tract; Z98.51 Tubal ligation status
CPT/HCPCS: 80048; 80076; 84702; 85025; 99283

== ENCOUNTER 2024-01-16 15:09 | Emergency (ER) | payer MEDICARE, OTHER ==
[~2024-01-16] VITALS: Ht 154.9 cm; Wt 56.8 kg
[~2024-01-16 15:09] MED LIST changes: -CEPH-558 PO; -CYCL-448 PO
[2024-01-16 15:30] VITALS: BP 134/86; PULSE 84; RESP 20; TEMP 98.7; O2SAT 100
[2024-01-16] MEDS ORDERED: NEOM10SO14 AD (18:00)
[2024-01-16] MEDS ORDERED: NEOMYCIN/POLYMYXIN B/HYDROCORT 10 ML OTIC SOLUTION AD ONE (18:00)
[2024-01-16] MEDS: NEOMYCIN/POLYMYXIN B/HYDROCORT 10 ML OTIC SUSPENSION AD ONE (18:47)
== END 2024-01-16 18:50 | disposition home or self-care (01) ==
LOC: EMS 15:09
DX: H60.91 Unspecified otitis externa, right ear (principal); K21.9 Gastro-esophageal reflux disease without esophagitis; I10 Essential (primary) hypertension
CPT/HCPCS: 99283

== ENCOUNTER 2024-01-25 21:18 | Emergency (ER) | payer MEDICARE, OTHER ==
[~2024-01-25] VITALS: Ht 162.6 cm; Wt 59.1 kg
[~2024-01-25 21:18] MED LIST changes: +NEOM10SO14 AD
[2024-01-25 21:53] VITALS: TEMP 98.1
[2024-01-25 23:07] LABS: BASOPHILS % (AUTO) 1.3 % (0.0-2.0); EOSINOPHILS % (AUTO) 3.4 % (1.0-6.0); HEMATOCRIT 30.2 % (36-46); HEMOGLOBIN 10.1 g/dL (12.0-16.0); LYMPHOCYTES # (AUTO) 1.1 K/uL (1.0-4.8); LYMPHOCYTES % (AUTO) 17.3 % (22.0-44.0); MEAN CORPUSCULAR HEMOGLOBIN 29.1 pg (26.0-34.0); MEAN CORPUSCULAR HGB CONC 33.4 G/dL (31.0-37.0); MEAN CORPUSCULAR VOLUME 87 fL (80-100); MONOCYTES # (AUTO) 0.6 K/uL (0.1-1.0); NEUTROPHILS # (AUTO) 4.3 K/uL (1.8-7.7); PLATELET COUNT (AUTO) 356 K/uL (150-450); RED BLOOD CELL COUNT(AUTO) 3.46 MIL/uL (4.00-5.20); RED CELL DISTRIBUTION WIDTH 14.9 % (11.5-14.5); WHITE BLOOD COUNT (AUTO) 6.3 K/uL (4.5-11.0)
[2024-01-25 23:17] LABS: ANION GAP 8 mmol/L (8-16); CALCIUM, TOTAL 8.4 mg/dL (8.8-10.5); CARBON DIOXIDE 30 mmol/L (22-29); CHLORIDE 104 mmol/L (98-107); CREATININE 0.58 mg/dL (0.60-1.30); GLOMERULAR FILTR. RATE CALC > 60 mL/min (>60); GLUCOSE,RANDOM 103 mg/dL (70-110); SODIUM SERUM 142 mmol/L (136-145); UREA NITROGEN, BLOOD 6 mg/dL (7-18)
[2024-01-25 23:24] LABS: AMMONIA 15 umol/L (11-32); TROPONIN I-HIGH SENSITIVITY 5 ng/L (<51)
[2024-01-25 23:25] LABS: LACTIC ACID 0.7 mmol/L (0.4-2.0)
[2024-01-25] MEDS: SODIUM CHLORIDE 0.9% 1,000 ML IV ONE (23:41)
[2024-01-25 23:43] LABS: ALANINE AMINOTRANSFERASE 21 U/L (12-78); ALBUMIN 3.1 g/dL (3.4-5.0); ALKALINE PHOSPHATASE 66 U/L (46-116); ASPARTATE AMINOTRANSFERASE 27 U/L (15-37); BILIRUBIN,TOTAL 0.3 mg/dL (0.1-1.0); CREATINE KINASE, TOTAL ONLY 180 U/L (26-192); TOTAL PROTEIN, SERUM 6.2 g/dL (6.4-8.2)
[2024-01-26] MEDS: NALOXONE HCL 1 MG/ML 2 ML SYRINGE IVP ONE (00:50)
[2024-01-26 01:48] VITALS: BP 144/61; PULSE 82; RESP 17; O2SAT 95
[2024-01-26 04:26] LABS: APPEARANCE,URINE CLEAR (CLEAR); BILIRUBIN,URINE NEGATIVE (NEGATIVE); COLOR,URINE COLORLESS (YELLOW); GLUCOSE, URINE (UA) NEGATIVE (NEGATIVE); KETONES,URINE NEGATIVE (NEGATIVE); LEUKOCYTE ESTERASE ,URINE NEGATIVE (NEGATIVE); NITRATE,URINE NEGATIVE (NEGATIVE); OCCULT BLOOD,URINE LARGE (NEGATIVE); PROTEIN,URINE NEGATIVE (NEGATIVE); SPECIFIC GRAVITIY, URINE 1.005 (1.003-1.030); UROBILINOGEN,URINE <=1.0 mg/dL (<=1.0)
[2024-01-26 04:32] LABS: ALCOHOL, URINE DRUG SCREEN NEGATIVE (NEGATIVE); AMPHET/METH SCREEN,URINE NEGATIVE (NEGATIVE); BARBITURATE SCREEN, URINE NEGATIVE (NEGATIVE); BENZODIAZEPINES SCREEN,URINE NEGATIVE (NEGATIVE); CANNABINOID SCREEN,URINE POSITIVE (NEGATIVE); COCAINE SCREEN,URINE NEGATIVE (NEGATIVE); METHADONE SCREEN, URINE NEGATIVE (NEGATIVE); OPIATE SCREEN,URINE POSITIVE (NEGATIVE); PHENCYCLIDINE SCREEN,URINE NEGATIVE (NEGATIVE)
[2024-01-26] MEDS: POTASSIUM CHLORIDE 20 MEQ ER TABLET PO ONE (04:42)
[2024-01-26 04:47] LABS: BACTERIA,URINE None Seen /HPF (None Seen); SQUAMOUS EPITHELIAL CELL,UR Few /LPF (None Seen); WBC,URINE None Seen /HPF (0-5)
== END 2024-01-26 05:04 | disposition home or self-care (01) ==
LOC: EMS 21:18
DX: R41.82 Altered mental status, unspecified (principal); T50.995A Adverse effect of other drugs, medicaments and biological substances, initial encounter; Y92.89 Other specified places as the place of occurrence of the external cause; K21.9 Gastro-esophageal reflux disease without esophagitis; F10.129 Alcohol abuse with intoxication, unspecified; F20.9 Schizophrenia, unspecified; F31.9 Bipolar disorder, unspecified; F41.9 Anxiety disorder, unspecified; E03.9 Hypothyroidism, unspecified; I10 Essential (primary) hypertension; M79.7 Fibromyalgia; Z87.19 Personal history of other diseases of the digestive system; Z90.49 Acquired absence of other specified parts of digestive tract; Z98.51 Tubal ligation status; Z79.899 Other long term (current) drug therapy; Y90.6 Blood alcohol level of 120-199 mg/100 ml
CPT/HCPCS: 99285; 70450; 71045; 96361; 80053; 81001; 82140; 82550; 83605; 84484; 85025; 87040; 36415; 93005; 96374; 80307 ×2; J7030; J2310; 51702